=== PATIENT | female | born 1985 | race Caucasian/White ===

== ENCOUNTER 2017-10-28 16:49 | Emergency (ER) | payer OTHER ==
[~2017-10-28] VITALS: Ht 160 cm; Wt 145.0 kg
[~2017-10-28 16:49] MED LIST: Z.0.NO CURRENT MEDS
[2017-10-28 16:55] VITALS: BP 153/88; PULSE 111; RESP 15; TEMP 98.6; O2SAT 94
--- NOTE | 2017-10-28 20:28 | PD ---
HPI Chief Complaint: back pain Time Seen by Provider: 20:06 Travel History International Travel<30 days: No Contact w/Intl Traveler<30days: No Traveled to known affect area: No History of Present Illness HPI 32yo morbidly obese female presents to the ED with c/o persistent right sided back pain for 2 days. Pt said pain is sharp, worst with bending over. It is nonradiating. Denies any fever, IVDA, focal weakness or numbness, urinary incontinence, dysuria, hematuria, vaginal bleeding or discharge. Denies any chest pain, sob, vomiting, abdominal pain. Pt was just evaluated at [facility] on 10/26/[address] a/p- that showed hepatomegaly. Cholelithiasis with contracted thick walled gallbladder consistent with chronic cholecystitis. Left sided nonobstructive urolithiasis. Pt was given prescription of toradol but did not fill because she said it did not help her. Pt said after she left the hospital, she started having a headache that was gradual onset. Headache is bilateral temporal and associated with nausea and photophobia. Said her grandparents had brain aneurysm. PFSH Past Medical History Diminished Hearing: No ?: Not : 1 Para: 1 Social History Alcohol Use: Yes (SOCIAL) Tobacco Use: No (STATES STOPPED SMOKING 3 WEEKS AGO) Substance Use: No Allergies-Medications (Allergen,Severity, Reaction): Coded Allergies: latex (Unverified Allergy, Intermediate, 12/18/16) Reported Meds & Prescriptions Reported Meds & Active Scripts Active Cephalexin 500 Mg Cap 500 Mg PO Q12H 7 Days Tylenol (Acetaminophen) 325 Mg Tab 650 Mg PO Q6H PRN Reported No Current Meds (Miscellaneous Medication) Misc Review of Systems Except as stated in HPI: all other systems reviewed are Neg Physical Exam Narrative GENERAL: 32yo F in mild distress. SKIN: Focused skin assessment warm/dry. HEAD: Atraumatic. Normocephalic. EYES: Pupils equal and round at 3mm bilaterally. EOMI. ENT: No nasal bleeding or discharge. Mucous membranes pink and moist. NECK: No nuchal rigidity. CARDIOVASCULAR: Regular rate and rhythm. No murmur appreciated. RESPIRATORY: No accessory muscle use. Clear to auscultation. Breath sounds equal bilaterally. GASTROINTESTINAL: Abdomen soft, non-tender, nondistended. BACK: No midline thoracic or lumbar ttp. +TTP right paraspinal T12-L2. No CVA tenderness. MUSCULOSKELETAL: No obvious deformities. No clubbing. No cyanosis. No edema. NEUROLOGICAL: Awake and alert. No obvious cranial nerve deficits. Motor grossly within normal limits in all extremities. Sensation intact. Normal speech. PSYCHIATRIC: Appropriate mood and affect; insight and judgment normal. Data Data Last Documented VS Vital Signs Date Time Temp Pulse Resp B/P (MAP) Pulse Ox O2 Delivery O2 Flow Rate FiO2 10/29/17 00:52 10/29/17 00:06 80 16 93 Room Air 10/28/17 16:[address] Brain W/O Iv Contrast(Rout) (10/28/17 ) Ed Urine Pregnancytest Poc (10/28/17 20:19) Urinalysis - C+S If Indicated (10/28/17 20:19) Diazepam (Valium) (10/28/17 20:30) Acetaminophen (Tylenol) (10/28/17 20:30) Metoclopramide Inj (Reglan Inj) (10/28/17 20:30) Urine Culture (10/28/17 20:35) Ketorolac Inj (Toradol Inj) (10/28/17 23:45) Ed Discharge Order (10/29/17 00:11) Labs Laboratory Tests Test 10/28/17 20:35 Urine Color YELLOW Urine Turbidity HAZY Urine pH 6.0 Urine Specific [place] 1.026 Urine Protein 30 mg/dL Urine Glucose (UA) 50 mg/dL Urine Ketones TRACE mg/dL Urine Occult Blood NEG Urine Nitrite NEG Urine Bilirubin NEG Urine Urobilinogen 2.0 mg/dL Urine Leukocyte Esterase MOD Urine RBC 3 /hpf Urine WBC 14 /hpf Urine Squamous Epithelial Cells 10 /hpf Urine Bacteria FEW /hpf Urine Mucus FEW /lpf Microscopic Urinalysis Comment CULTURE INDICATED MDM Medical Decision Making Medical Screen Exam Complete: Yes Emergency Medical Condition: Yes Differential Diagnosis Migraine headache vs. tension headache vs. anxiety vs. ICH (low suspicion) Musculoskeletal pain vs. pyelonephritis Narrative Course 32yo F with migraine like headache and right sided back pain that seems very musculoskeletal. Pt was seen at [facility] and had a full work up including labs and CT a/p. Urine negative. UA showed moderate leukocyte. WBC 14. Culture indicated. Pt given valium, reglan and acetaminophen. Said headache has improved but back pain is still there. CT brain showed no acute intracranial abnormality. It was completed because of pt' s family history of aneurysm, although I have low suspicion for SAH. Pt is well appearing. Informed pt that CT brain is not 100% sensitive for SAH since headache onset is after 6 hours and pt refused LP. Given toradol for back pain. Reevaluated at bedside and back pain improved. Return precautions given. Diagnosis Primary Impression: UTI (urinary tract infection) Qualified Codes: N39.0 - Urinary tract infection, site not specified Patient Instructions: General Instructions Departure Forms: Tests/Procedures Additional Instructions: Please follow up with your primary care physician in 2-3 days. Return to the ED if symptoms worsen. Med/Other Pt SpecificInfo: Prescription(s) given Scripts Cephalexin (Cephalexin) 500 Mg Cap 500 MG PO Q12H for Infection for 7 Days, #14 CAP 0 Refills Prov: Helene Otero DO 10/29/17 Acetaminophen (Tylenol) 325 Mg Tab 650 MG PO Q6H Y for PAIN SCALE 1 TO 4, #20 TAB 0 Refills Prov: Helene Otero DO 10/29/17 Disposition: 01 DISCHARGE HOME Condition: Stable Helene Otero DO Oct 28, 2017 20:28
[2017-10-28] MEDS ORDERED: METOCLOPRAMIDE INJ 10 MG in SODIUM CHLORIDE 0.9% INJ 50 ML IV ONE (20:30)
[2017-10-28] MEDS ORDERED: ACETAMINOPHEN 500 MG CPLT PO ONE (20:30)
[2017-10-28] MEDS ORDERED: DIAZEPAM 5 MG TAB PO ONE (20:30)
[2017-10-28 21:01] LABS: BACTERIA, URINE FEW /hpf; BILIRUBIN, URINE NEG (NEG); BLOOD, URINE NEG (NEG); GLUCOSE,URINE 50 mg/dL (NEG); KETONE, URINE TRACE mg/dL (NEG); MUCUS URINE FEW /lpf (OCC); NITRITE,URINE NEG (NEG); SQUAMOUS EPITHELIAL CELL URINE 10 /hpf (0-5); URINE COLOR YELLOW (YELLW/STRAW); URINE LEUKOCYTE ESTERASE MOD (NEG)
--- NOTE | 2017-10-28 22:46 | RADRPT ---
EXAM DATE: 10/28/2017 9:57 PM EDT AGE/SEX: 32 years / Female INDICATIONS: Cephalgia. CLINICAL DATA: This is the patient's initial encounter. Patient reports that signs and symptoms have been present for 1 day and indicates a pain score of 5/10. MEDICAL/SURGICAL HISTORY: None. None. RADIATION DOSE: 38.12 CTDI (mGy) COMPARISON: No prior exams available for comparison. TECHNIQUE: CT of the head without contrast. Using automated exposure control and adjustment of the mA and/or kV according to patient size, radiation dose was kept as low as reasonably achievable to ob tain optimal diagnostic quality images. DICOM format image data is available electronically for revi ew and comparison. FINDINGS: Cerebrum: The ventricles are normal. No midline shift, mass lesion, hemorrhage or acute infarction. No extraaxial fluid collections are seen. Posterior Fossa: The cerebellum and brainstem demonstrate no acute abnormality. The 4th ventricle is midline. The cerebellopontine angle is within normal limits. Extracranial: The visualized sinuses are clear. Skull: The calvaria is intact. No skull fracture. CONCLUSION: No acute intracranial abnormality is identified. Electronically signed by: Louie Jones MD 10/28/2017 10:45 PM EDT
[2017-10-28] MEDS ORDERED: KETOROLAC TROMETHAMINE 30 MG/ML (IVP) VIAL IV PUSH ONE (23:45)
[2017-10-29 00:06] VITALS: BP 123/72; PULSE 80; RESP 16; O2SAT 93
[2017-10-29] MEDS ORDERED: CEPH500C PO (00:08)
[2017-10-29] MEDS ORDERED: TYLE325T PO (00:08)
== END 2017-10-29 00:53 | disposition home or self-care (01) ==
LOC: NEPD 16:49
DX: N39.0 Urinary tract infection, site not specified (principal); M54.9 Dorsalgia, unspecified; R51 Headache; R11.0 Nausea
CPT/HCPCS: 70450; 81001; 84703; 87086; 96365; 96366; 96375; 99284; J1885; J2765